=== PATIENT | female | born 1965 | race Caucasian/White ===

== ENCOUNTER 2021-05-30 11:32 | Emergency (ER) | payer MEDICARE, MEDICAID ==
[2021-05-30] MEDS ORDERED: BACTRIM DS1 TAB PO (14:43)
[2021-05-30] MEDS ORDERED: OMNICEF300 M1 PO (14:43)
[2021-05-30] MEDS ORDERED: PROBIOTIC FORMU1 CAP PO (14:45)
[2021-05-30 15:05] VITALS: BP 135/76
== END 2021-05-30 15:07 | disposition home or self-care (01) ==
LOC: ED 11:32
PROC: 0H9MXZZ Drainage of Right Foot Skin, External Approach (ICD-10-PCS; principal; 2021-05-30)
DX: L03.115 Cellulitis of right lower limb (principal)